=== PATIENT | male | born 1960 | race Caucasian/White ===

== ENCOUNTER → 2018-07-18 12:49 | Outpatient (CLI) | payer SELFPAY | PROVIDERS: Visit Provider Internal Medicine Cardiovascular Disease | DX: I47.1 Supraventricular tachycardia (principal); R00.2 Palpitations; E03.9 Hypothyroidism, unspecified | CPT/HCPCS: 93017; 93306; 93350; Q9957; A4216; C8928; C8929 ==

== ENCOUNTER → 2019-06-20 12:14 | Outpatient (CLI) | payer SELFPAY ==
[2019-01-20 14:08] VITALS: BMI 53.1
--- NOTE | 2019-06-20 12:24 | MRI_ITS ---
STUDY: MRI BRAIN WITHOUT CONTRAST REASON FOR EXAM: Male, 59 years old. Headache, left arm pain, left arm numbness and tingling. TECHNIQUE: Standardized multiplanar fat and water weighted pulse sequences were obtained. COMPARISON: None. FINDINGS: Normal size of the ventricles and extra-axial spaces for the patient's age. Normal white matter tracts of the supratentorial brain. There is no evidence for recent intracranial ischemia or other cause of cytotoxic edema on diffusion weighted imaging (DWI). Normal T2* images of the brain without demonstrated susceptibility artifact. There is no demonstrated hemosiderin stain. 1.2 cm mass within the right temporal lobe with surrounding vasogenic edema. Similar smaller masses in the posterior aspect of the temporal lobes bilaterally. Another 1 cm mass in the paravertebral white matter of the right parietal lobe. Findings are worrisome for metastatic disease in correlation with MRI MRI with contrast is recommended. Normal bilateral basal ganglia. Normal thalami. There is no extra-axial fluid accumulation. Normal flow voids within the major intracranial circulation suggesting patency by spin echo criteria. Normal sella turcica, pituitary gland, infundibular stalk, optic chiasm and hypothalamus. Normal tectal plate and pineal gland. Normal midbrain, sally and medulla. Normal cerebellum. Normal basal cisterns. Normal bilateral temporal bones. Normal bilateral internal auditory canals. No demonstrated orbital abnormality, within the constraints of a routine brain study. Normal visualized paranasal sinuses. Normal calvarium and skull base. Normal visualized soft tissue structures. Normal visualized upper cervical spine. MRI/Brain without Contrast IMPRESSION: Multiple masses with new vasogenic edema worrisome for metastatic disease. Correlation with MRI with contrast is recommended. Electronically Signed: Coleman Cardoza MD at 13:57 EDT Tel , Service support ,
== END ==
PROVIDERS: Family Provider Nurse Practitioner Family; PCP Nurse Practitioner Family; Referring Provider Nurse Practitioner Family; Visit Provider Nurse Practitioner Family
DX: R51 Headache (principal)
CPT/HCPCS: 70551